=== PATIENT | female | born 1950 ===

== ENCOUNTER 2021-05-16 03:20 | Inpatient (IN) | payer MEDICARE ==
[2021-05-16] MEDS ORDERED: MELATONIN 5 MG TAB PO PRN (04:09)
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
[2021-05-16] MEDS ORDERED: LEVOTHYROXINE 125 MCG TAB PO SCH (10:00)
[2021-05-16] MEDS: DIVALPROEX ER 250 MG TAB PO SCH (10:28)
[2021-05-16] MEDS: clonazePAM 0.5 MG TAB PO SCH (10:28)
[2021-05-16 10:29] LABS: Basophils # (Auto) 0.1 K/mm3 (0.0-0.1); Eosinophils # (Auto) 0.2 K/mm3 (0.0-0.4); Eosinophils % (Auto) 4.6 % (0.0-4.3); Hematocrit 35.8 % (30.3-42.9); Hemoglobin 12.6 gm/dl (10.1-14.3); Lymphocytes # (Auto) 1.8 K/mm3 (1.2-5.4); Lymphocytes % (Auto) 43.4 % (13.4-35.0); Mean Corpuscular HGB Conc 35 % (30-34); Mean Corpuscular Volume 92 fl (79-97); Monocytes # (Auto) 0.4 K/mm3 (0.0-0.8); Platelet Count 366 K/mm3 (140-440); Red Blood Count 3.89 M/mm3 (3.65-5.03); Red Cell Distribution Width 13.2 % (13.2-15.2)
[2021-05-16 10:43] LABS: Alanine Aminotransferase 18 units/L (7-56); Blood Urea Nitrogen 9 mg/dL (7-17); Chol/HDL Ratio 2.22 %; HDL Cholesterol 104 mg/dL (40-59); Hemolysis Index 3; LDL Cholesterol,Direct 124 mg/dL (50-130)
[2021-05-16 10:51] LABS: BUN/Creatinine Ratio 15
[2021-05-16] MEDS ORDERED: POTASSIUM CHLORIDE ER 20 MEQ TAB PO NR (13:11)
[2021-05-16] MEDS: SULFAMETHOXAZOLE/TRIMETHOPRIM 800/160MG DS TAB PO SCH ×2 (13:16→22:04)
[2021-05-16] MEDS: LEVOTHYROXINE 125 MCG TAB PO SCH (13:16)
[2021-05-16] MEDS ORDERED: QUEtiapine 25 MG TAB PO SCH (22:00)
[2021-05-16] MEDS: traZODone 50 MG TAB PO SCH (22:04)
[2021-05-17] MEDS ORDERED: diphenhydrAMINE 25 MG CAP PO ONE (03:50)
[2021-05-17] MEDS: LEVOTHYROXINE 125 MCG TAB PO SCH (06:38)
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
[2021-05-17] MEDS ORDERED: QUEtiapine 25 MG TAB PO SCH (08:40)
[2021-05-17] MEDS ORDERED: ASENAPINE MALEATE 10 MG SL SCH (10:00)
[2021-05-17] MEDS: SULFAMETHOXAZOLE/TRIMETHOPRIM 800/160MG DS TAB PO SCH ×2 (10:57→21:25)
[2021-05-17] MEDS: DIVALPROEX ER 250 MG TAB PO SCH (10:57)
[2021-05-17] MEDS: clonazePAM 0.5 MG TAB PO SCH (10:57)
[2021-05-17] MEDS: traZODone 50 MG TAB PO SCH (21:25)
[2021-05-17] MEDS: QUEtiapine 200 MG TAB PO SCH (21:25)
[2021-05-18] MEDS: LEVOTHYROXINE 125 MCG TAB PO SCH (05:39)
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
[2021-05-18] MEDS: DIVALPROEX ER 250 MG TAB PO SCH (09:09)
[2021-05-18] MEDS: clonazePAM 0.5 MG TAB PO SCH (09:09)
[2021-05-18] MEDS: SULFAMETHOXAZOLE/TRIMETHOPRIM 800/160MG DS TAB PO SCH ×2 (09:09→22:26)
[2021-05-18] MEDS: QUEtiapine 200 MG TAB PO SCH ×2 (22:26→23:53)
[2021-05-18] MEDS: traZODone 50 MG TAB PO SCH (22:26)
[2021-05-19] MEDS: LEVOTHYROXINE 125 MCG TAB PO SCH (07:43)
[2021-05-19] MEDS: DIVALPROEX ER 250 MG TAB PO SCH (09:06)
[2021-05-19] MEDS: clonazePAM 0.5 MG TAB PO SCH (09:06)
[2021-05-19] MEDS: SULFAMETHOXAZOLE/TRIMETHOPRIM 800/160MG DS TAB PO SCH ×2 (09:06→21:13)
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
[2021-05-19] MEDS: traZODone 50 MG TAB PO SCH (21:12)
[2021-05-19] MEDS: QUEtiapine 200 MG TAB PO SCH (21:13)
[2021-05-20] MEDS: LEVOTHYROXINE 125 MCG TAB PO SCH (06:20)
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
[2021-05-20] MEDS: SULFAMETHOXAZOLE/TRIMETHOPRIM 800/160MG DS TAB PO SCH ×2 (09:11→21:00)
[2021-05-20] MEDS: clonazePAM 0.5 MG TAB PO SCH (09:11)
[2021-05-20] MEDS ORDERED: DIVALPROEX ER 250 MG TAB PO SCH (10:00)
[2021-05-20] MEDS: DIVALPROEX ER 500 MG TAB PO SCH ×3 (10:03→21:04)
[2021-05-20] MEDS: traZODone 50 MG TAB PO SCH (21:01)
[2021-05-21] MEDS: LEVOTHYROXINE 125 MCG TAB PO SCH (06:08)
--- NOTE | 2021-05-21 09:20 | Progress Note ---
Subjective Date of service: 05/21/21 Principal diagnosis: (1) Bipolar 1 disorder Subjective Comment: The patient was seen today. She is sitting off to herself. She says she's feeling okay. She denies SI/HI or hallucinations of any kind. REVIEW OF SYSTEMS Constitutional: Negative for weight loss ENT: Negative for stridor Respiratory: Negative for cough or hemoptysis All other systems reviewed and are negative MENTAL STATUS EXAMINATION General Appearance and Behavior: Age appropriate, good hygiene, wearing appropriate clothes, good eye contact, cooperative polite with questioning. Cooperation: Participating/engaged Psychomotor Behavior: unremarkable and within normal limits Mood: angry Affect and affective range: dysthymic Thought Process: illogical, Thought Content:obsessions Speech: Normal tone and pace Intellectual Functioning: Average Suicidal Ideation: Denies SI Homicidal Ideation: Denies HI Impulse Control: Unimpaired Insight and Judgment: Normal insight and judgment, Memory: Normal, Attention: divided Orientation: Alert, oriented, Assessment and Plan (1) Bipolar 1 disorder Current Visit: Yes Status: Acute Treatment Plan Patient admitted for inpatient psychiatric evaluation, medication adjustment and close monitoring The patient's behavior, mood, sleep and appetite will be closely monitored. Patient enrolled in individual and group therapeutic sessions and encouraged to attend. Patient provided with a safe and structured environment. Patient's physical health needs will be addressed by the Hospitalist. Hospitalist Consulted Labs including CBC, CMP, Lipid profile and Hemoglobin A1C levels ordered for baseline reference Valproic level 05/22 Social Assessment will be completed and the Valve Lapper will work with patient and family to ensure a suitable and safe disposition Medication adjustment will be made as clinically indicated D/c seranai at patient's request, states that it was discontinued by previous Dr due to it causing her to be depressed yesterday Increase Depakote ER 500mg po BID yesterday Increase Trazodone 75mg po qhs yesterday Usual Wellness Holiness/Preservation: - Start Trazodone 50 mg po QHS & 50 mg po QHS PRN between 10 PM & 2 AM for insomnia - Start Melatonin 5 mg po QHS to promote circadian rhythm - Start [place]-3 for brain health, reduce impulsivity, and as adjunctive treatment for mood disorder, continue upon discharge given overall benefits. - Start B1 prophylaxis with 200 mg po for 5 days The patient agreed on the treatment plan, understood the risk, benefit, alternative treatment, potential consequence of no treatment, and gave informed consent. I certify that the inpatient psychiatric services are required for treatment that could reasonably be expected to improve the patient's condition. Estimated days: 6 Post hospital care: primary care provider, psychiatric provider Medications and Allergies Allergies Allergy/AdvReac Type Severity Reaction Status Date / Time codeine Allergy Unknown Verified 05/16/21 03:58 shellfish derived Allergy Unknown Verified 05/16/21 03:58 Home Medications Medication Instructions Recorded Confirmed Last Taken Type Asenapine Maleate [Saphris] 10 mg SL BID 05/16/21 05/16/21 Unknown History Cyclobenzaprine [Flexeril 10 MG 10 mg PO TID PRN 05/16/21 05/16/21 Unknown History TAB] Divalproex ER [DepaKOTE ER] 250 mg PO DAILY 05/16/21 05/16/21 Unknown History Estradiol 0.1 mg TP UNK 05/16/21 05/16/21 Unknown History Levothyroxine [Synthroid] 125 mcg PO QAM 05/16/21 05/16/21 Unknown History Sulfamethoxazole/Trimethoprim 1 tab PO BID 05/16/21 05/16/21 Unknown History [Bactrim DS TAB] clonazePAM [KlonoPIN] 0.5 mg PO BID 05/16/21 05/16/21 Unknown History traZODone [Desyrel] 50 mg PO QHS 05/16/21 05/16/21 Unknown History Active Meds: Active Medications Clonazepam (Clonazepam 0.5 Mg Tab) 0.5 mg PO QAM ON LICENSE OF [facility] Last Admin: 05/20/21 09:11 Dose: 0.5 mg Documented by: Divalproex Sodium (Divalproex Er 500 Mg Tab) 500 mg PO BID ON LICENSE OF [facility] Last Admin: 05/20/21 21:04 Dose: Not Given Documented by: Levothyroxine Sodium (Levothyroxine 125 Mcg Tab) 125 mcg PO DAILY@0600 ON LICENSE OF [facility] Last Admin: 05/21/21 06:08 Dose: 125 mcg Documented by: Melatonin (Melatonin 5 Mg Tab) 5 mg PO QHS PRN PRN Reason: Sleep Miscellaneous Medication (Asenapine Maleate [Saphris]) 10 mg SL BID ON LICENSE OF [facility] Trazodone HCl (Trazodone 50 Mg Tab) 75 mg PO QHS ON LICENSE OF [facility] Last Admin: 05/20/21 21:01 Dose: 75 mg Documented by: Trimethoprim/Sulfamethoxazole (Sulfamethoxazole/Trimethoprim 800/160mg Ds Tab) 1 each PO Q12HR [facility]; Protocol Stop: 05/22/21 22:01 Last Admin: 05/20/21 21:00 Dose: 1 each Documented by: Results - Results Labs/Vitals: Laboratory Last Values WBC 4.1 K/mm3 (4.5-11.0) L 05/16/21 09:34 RBC 3.89 M/mm3 (3.65-5.03) 05/16/21 09:34 Hgb 12.6 gm/dl (10.1-14.3) 05/16/21 09:34 Hct 35.8 % (30.3-42.9) 05/16/21 09:34 MCV 92 fl (79-97) 05/16/21 09:34 MCH 33 pg (28-32) H 05/16/21 09:34 MCHC 35 % (30-34) H 05/16/21 09:34 RDW 13.2 % (13.2-15.2) 05/16/21 09:34 Plt Count 366 K/mm3 (140-440) 05/16/21 09:34 Lymph % (Auto) 43.4 % (13.4-35.0) H 05/16/21 09:34 [place] % (Auto) 10.0 % (0.0-7.3) H 05/16/21 09:34 Eos % (Auto) 4.6 % (0.0-4.3) H 05/16/21 09:34 Baso % (Auto) Dry Roller 05/16/21 09:34 Lymph # (Auto) 1.8 K/mm3 (1.2-5.4) 05/16/21 09:34 [place] # (Auto) 0.4 K/mm3 (0.0-0.8) 05/16/21 09:34 Eos # (Auto) 0.2 K/mm3 (0.0-0.4) 05/16/21 09:34 Baso # (Auto) 0.1 K/mm3 (0.0-0.1) 05/16/21 09:34 Seg Neutrophils % 39.0 % (40.0-70.0) L 05/16/21 09:34 Seg Neutrophils # 1.6 K/mm3 (1.8-7.7) L 05/16/21 09:34 Sodium 130 mmol/L (137-145) L 05/16/21 09:34 Potassium 3.5 mmol/L (3.6-5.0) L 05/16/21 09:34 Chloride 95.3 mmol/L (98-107) L 05/16/21 09:34 Carbon Dioxide 25 mmol/L (22-30) 05/16/21 09:34 Anion Gap 13 mmol/L 05/16/21 09:34 BUN 9 mg/dL (7-17) 05/16/21 09:34 Creatinine 0.6 mg/dL (0.6-1.2) 05/16/21 09:34 Estimated GFR > 60 ml/min 05/16/21 09:34 BUN/Creatinine Ratio 15 % 05/16/21 09:34 Glucose 124 mg/dL (65-100) H 05/16/21 09:34 POC Glucose 78 mg/dL (70-105) 05/16/21 04:57 Hemoglobin A1c 4.9 % (4-6) 05/16/21 09:34 Calcium 9.0 mg/dL (8.4-10.2) 05/16/21 09:34 Total Bilirubin 0.40 mg/dL (0.1-1.2) 05/16/21 09:34 AST 31 units/L (5-40) 05/16/21 09:34 ALT 18 units/L (7-56) 05/16/21 09:34 Alkaline Phosphatase 54 units/L (35-129) 05/16/21 09:34 Total Protein 6.3 g/dL (6.3-8.2) 05/16/21 09:34 Albumin 4.0 g/dL (3.9-5) 05/16/21 09:34 Albumin/Globulin Ratio 1.7 % 05/16/21 09:34 Triglycerides 33 mg/dL (2-149) 05/16/21 09:34 Cholesterol 231 mg/dL (50-199) H 05/16/21 09:34 LDL Cholesterol Direct 124 mg/dL (50-130) 05/16/21 09:34 HDL Cholesterol 104 mg/dL (40-59) H 05/16/21 09:34 Cholesterol/HDL Ratio 2.22 % 05/16/21 09:34 TSH 4.810 mlU/mL (0.270-4.200) H 05/16/21 09:34 Valproic Acid 32.1 ug/mL (50-100) L 05/18/21 08:23 Last Vital Signs Temp 98.5 F 05/21/21 08:50 Pulse 107 H 05/21/21 08:50 Resp 20 05/21/21 08:50 BP 129/81 05/21/21 08:50 Pulse Ox 100 05/20/21 19:34
[2021-05-21] MEDS: clonazePAM 0.5 MG TAB PO SCH (09:31)
[2021-05-21] MEDS: SULFAMETHOXAZOLE/TRIMETHOPRIM 800/160MG DS TAB PO SCH ×2 (09:33→21:04)
[2021-05-21] MEDS: VALPROIC ACID 250 MG/5 ML ORAL LIQD PO SCH ×2 (10:42→21:04)
[2021-05-21] MEDS: traZODone 50 MG TAB PO SCH (21:04)
[2021-05-22] MEDS: LEVOTHYROXINE 125 MCG TAB PO SCH (05:24)
[2021-05-22] MEDS: VALPROIC ACID 250 MG/5 ML ORAL LIQD PO SCH ×2 (09:39→21:23)
[2021-05-22] MEDS: SULFAMETHOXAZOLE/TRIMETHOPRIM 800/160MG DS TAB PO SCH ×2 (09:39→21:23)
[2021-05-22] MEDS: clonazePAM 0.5 MG TAB PO SCH (09:39)
--- NOTE | 2021-05-22 10:54 | Progress Note ---
Subjective Date of service: 05/22/21 Principal diagnosis: (1) Bipolar 1 disorder Subjective Comment: Per Nurse Note: pt rested well overnight, slept for 7hrs, no distress noted, will continue to monitor for safety. Patient seen eating breakfast in the common room. She reports doing well. She s tates mood as "fine , no complain." Patient reports eating and sleeping well. She is focused on discharge. She denies any current suicidal/homicidal ideation and denies AVHs. REVIEW OF SYSTEMS Constitutional: Negative for weight loss ENT: Negative for stridor Respiratory: Negative for cough or hemoptysis All other systems reviewed and are negative MENTAL STATUS EXAMINATION General Appearance and Behavior: Age appropriate, good hygiene, wearing appropriate clothes, good eye contact, cooperative polite with questioning. Cooperation: Participating/engaged Psychomotor Behavior: unremarkable and within normal limits Mood: "fine" Affect and affective range: dysthymic Thought Process: illogical, Thought Content:obsessions Speech: Normal tone and pace Intellectual Functioning: Average Suicidal Ideation: Denies SI Homicidal Ideation: Denies HI Impulse Control: Unimpaired Insight and Judgment: Normal insight and judgment, Memory: Normal, Attention: divided Orientation: Alert, oriented, Assessment and Plan (1) Bipolar 1 disorder Current Visit: Yes Status: Acute Treatment Plan Patient admitted for inpatient psychiatric evaluation, medication adjustment and close monitoring The patient's behavior, mood, sleep and appetite will be closely monitored. Patient enrolled in individual and group therapeutic sessions and encouraged to attend. Patient provided with a safe and structured environment. Patient's physical health needs will be addressed by the Hospitalist. Hospitalist Consulted Labs including CBC, CMP, Lipid profile and Hemoglobin A1C levels ordered for baseline reference Valproic level 05/22 Social Assessment will be completed and the Wireline Supervisor will work with patient and family to ensure a suitable and safe disposition Medication adjustment will be made as clinically indicated D/c seroqel at patient's request, states that it was discontinued by previous Dr due to it causing her to be depressed yesterday Increase Depakote ER 500mg po BID yesterday Increase Trazodone 75mg po qhs yesterday Usual Wellness Anabaptist/Preservation: - Start Trazodone 50 mg po QHS & 50 mg po QHS PRN between 10 PM & 2 AM for insomnia - Start Melatonin 5 mg po QHS to promote circadian rhythm - Start [place]-3 for brain health, reduce impulsivity, and as adjunctive treatment for mood disorder, continue upon discharge given overall benefits. - Start B1 prophylaxis with 200 mg po for 5 days The patient agreed on the treatment plan, understood the risk, benefit, alternative treatment, potential consequence of no treatment, and gave informed consent. I certify that the inpatient psychiatric services are required for treatment that could reasonably be expected to improve the patient's condition. Estimated days: 6 Post hospital care: primary care provider, psychiatric provider Medications and Allergies Allergies Allergy/AdvReac Type Severity Reaction Status Date / Time codeine Allergy Unknown Verified 05/16/21 03:58 shellfish derived Allergy Unknown Verified 05/16/21 03:58 Home Medications Medication Instructions Recorded Confirmed Last Taken Type Asenapine Maleate [Saphris] 10 mg SL BID 05/16/21 05/16/21 Unknown History Cyclobenzaprine [Flexeril 10 MG 10 mg PO TID PRN 05/16/21 05/16/21 Unknown History TAB] Divalproex ER [DepaKOTE ER] 250 mg PO DAILY 05/16/21 05/16/21 Unknown History Estradiol 0.1 mg TP UNK 05/16/21 05/16/21 Unknown History Levothyroxine [Synthroid] 125 mcg PO QAM 05/16/21 05/16/21 Unknown History Sulfamethoxazole/Trimethoprim 1 tab PO BID 05/16/21 05/16/21 Unknown History [Bactrim DS TAB] clonazePAM [KlonoPIN] 0.5 mg PO BID 05/16/21 05/16/21 Unknown History traZODone [Desyrel] 50 mg PO QHS 05/16/21 05/16/21 Unknown History Active Meds: Active Medications Clonazepam (Clonazepam 0.5 Mg Tab) 0.5 mg PO QAM [facility] Last Admin: 05/22/21 09:39 Dose: 0.5 mg Documented by: Levothyroxine Sodium (Levothyroxine 125 Mcg Tab) 125 mcg PO DAILY@0600 [facility] Last Admin: 05/22/21 05:24 Dose: 125 mcg Documented by: Melatonin (Melatonin 5 Mg Tab) 5 mg PO QHS PRN PRN Reason: Sleep Last Admin: 05/21/21 21:04 Dose: 5 mg Documented by: Trazodone HCl (Trazodone 50 Mg Tab) 75 mg PO QHS [facility] Last Admin: 05/21/21 21:04 Dose: 75 mg Documented by: Trimethoprim/Sulfamethoxazole (Sulfamethoxazole/Trimethoprim 800/160mg Ds Tab) 1 each PO Q12HR [facility]; Protocol Stop: 05/22/21 22:01 Last Admin: 05/22/21 09:39 Dose: 1 each Documented by: Valproic Acid (Valproic Acid 250 Mg/5 Ml Oral Liqd) 500 mg PO BID [facility] Last Admin: 05/22/21 09:39 Dose: 500 mg Documented by: Results - Results Labs/Vitals: Laboratory Last Values WBC 4.1 K/mm3 (4.5-11.0) L 05/16/21 09:34 RBC 3.89 M/mm3 (3.65-5.03) 05/16/21 09:34 Hgb 12.6 gm/dl (10.1-14.3) 05/16/21 09:34 Hct 35.8 % (30.3-42.9) 05/16/21 09:34 MCV 92 fl (79-97) 05/16/21 09:34 MCH 33 pg (28-32) H 05/16/21 09:34 MCHC 35 % (30-34) H 05/16/21 09:34 RDW 13.2 % (13.2-15.2) 05/16/21 09:34 Plt Count 366 K/mm3 (140-440) 05/16/21 09:34 Lymph % (Auto) 43.4 % (13.4-35.0) H 05/16/21 09:34 [place] % (Auto) 10.0 % (0.0-7.3) H 05/16/21 09:34 Eos % (Auto) 4.6 % (0.0-4.3) H 05/16/21 09:34 Baso % (Auto) Pet Sitter 05/16/21 09:34 Lymph # (Auto) 1.8 K/mm3 (1.2-5.4) 05/16/21 09:34 [place] # (Auto) 0.4 K/mm3 (0.0-0.8) 05/16/21 09:34 Eos # (Auto) 0.2 K/mm3 (0.0-0.4) 05/16/21 09:34 Baso # (Auto) 0.1 K/mm3 (0.0-0.1) 05/16/21 09:34 Seg Neutrophils % 39.0 % (40.0-70.0) L 05/16/21 09:34 Seg Neutrophils # 1.6 K/mm3 (1.8-7.7) L 05/16/21 09:34 Sodium 130 mmol/L (137-145) L 05/16/21 09:34 Potassium 3.5 mmol/L (3.6-5.0) L 05/16/21 09:34 Chloride 95.3 mmol/L (98-107) L 05/16/21 09:34 Carbon Dioxide 25 mmol/L (22-30) 05/16/21 09:34 Anion Gap 13 mmol/L 05/16/21 09:34 BUN 9 mg/dL (7-17) 05/16/21 09:34 Creatinine 0.6 mg/dL (0.6-1.2) 05/16/21 09:34 Estimated GFR > 60 ml/min 05/16/21 09:34 BUN/Creatinine Ratio 15 % 05/16/21 09:34 Glucose 124 mg/dL (65-100) H 05/16/21 09:34 POC Glucose 78 mg/dL (70-105) 05/16/21 04:57 Hemoglobin A1c 4.9 % (4-6) 05/16/21 09:34 Calcium 9.0 mg/dL (8.4-10.2) 05/16/21 09:34 Total Bilirubin 0.40 mg/dL (0.1-1.2) 05/16/21 09:34 AST 31 units/L (5-40) 05/16/21 09:34 ALT 18 units/L (7-56) 05/16/21 09:34 Alkaline Phosphatase 54 units/L (35-129) 05/16/21 09:34 Total Protein 6.3 g/dL (6.3-8.2) 05/16/21 09:34 Albumin 4.0 g/dL (3.9-5) 05/16/21 09:34 Albumin/Globulin Ratio 1.7 % 05/16/21 09:34 Triglycerides 33 mg/dL (2-149) 05/16/21 09:34 Cholesterol 231 mg/dL (50-199) H 05/16/21 09:34 LDL Cholesterol Direct 124 mg/dL (50-130) 05/16/21 09:34 HDL Cholesterol 104 mg/dL (40-59) H 05/16/21 09:34 Cholesterol/HDL Ratio 2.22 % 05/16/21 09:34 TSH 4.810 mlU/mL (0.270-4.200) H 05/16/21 09:34 Valproic Acid 32.1 ug/mL (50-100) L 05/18/21 08:23 Last Vital Signs Temp 98.7 F 05/22/21 07:59 Pulse 97 H 05/22/21 07:59 Resp 18 05/22/21 07:59 BP 104/67 05/22/21 07:59 Pulse Ox 99 05/22/21 07:59
--- NOTE | 2021-05-22 11:29 | Event Note ---
Date: 05/22/21 Spoke with the patient's spouse this morning about the patient's progress, and mad management. He says the patient became manic and delusional about two weeks ago, and starting making comments about wanting to hurt herself. He says then she became agitated and starting screaming at people who are not there. He says the patient also has not been sleeping.He says the the patient has been on several medications, and states that one of the meds made her "flat." I informed him that the patient states that was the seroquel and it had been discontinued. I also informed him that I had made some med adjustments. He verbalized understanding and agreement. Started Olanzapine 2.5mg po daily and increased Trazodone 100mg po qhs.
[2021-05-22] MEDS: traZODone 100 MG TAB PO SCH (21:24)
[2021-05-23] MEDS: LEVOTHYROXINE 125 MCG TAB PO SCH (05:46)
--- NOTE | 2021-05-23 09:11 | Event Note ---
Date: 05/23/21 Olanzapine discontinued, as the patient's told the nurse that is was discontinued by previous provider due to TD, per Nurse Richard
[2021-05-23] MEDS: clonazePAM 0.5 MG TAB PO SCH (09:31)
[2021-05-23] MEDS: VALPROIC ACID 250 MG/5 ML ORAL LIQD PO SCH ×2 (09:31→21:58)
--- NOTE | 2021-05-23 10:11 | Progress Note ---
Subjective Date of service: 05/23/21 Principal diagnosis: (1) Bipolar 1 disorder Subjective Comment: Per Nurse Note: Patient has been appropriate, calm, cooperative with staff and peers, she was med compliant. She denies si/hi and avh. Will continue to monitor. Patient was seen today i the activity room. patient states " I'm a little frustrated, I should not be here." Patient continues to reference as being abusive to their cat. She is hyperverbal and some manic. She reports slee ping and eating well. She denies any current suicidal/homicidal ideation and denies AVHs. REVIEW OF SYSTEMS Constitutional: Negative for weight loss ENT: Negative for stridor Respiratory: Negative for cough or hemoptysis All other systems reviewed and are negative MENTAL STATUS EXAMINATION General Appearance and Behavior: Age appropriate, good hygiene, wearing appropriate clothes, good eye contact, cooperative polite with questioning. Cooperation: Participating/engaged Psychomotor Behavior: unremarkable and within normal limits Mood: "frustrated" Affect and affective range: irritable Thought Process: illogical, Thought Content:obsessions Speech: Normal tone and pace Intellectual Functioning: Average Suicidal Ideation: Denies SI Homicidal Ideation: Denies HI Impulse Control: Unimpaired Insight and Judgment: Normal insight and judgment, Memory: Normal, Attention: divided Orientation: Alert, oriented, Assessment and Plan (1) Bipolar 1 disorder Current Visit: Yes Status: Acute Treatment Plan Patient admitted for inpatient psychiatric evaluation, medication adjustment and close monitoring The patient's behavior, mood, sleep and appetite will be closely monitored. Patient enrolled in individual and group therapeutic sessions and encouraged to attend. Patient provided with a safe and structured environment. Patient's physical health needs will be addressed by the Hospitalist. Hospitalist Consulted Labs including CBC, CMP, Lipid profile and Hemoglobin A1C levels ordered for baseline reference Valproic level 05/22 Social Assessment will be completed and the Metal Cut Off Saw Operator will work with patient and family to ensure a suitable and safe disposition Medication adjustment will be made as clinically indicated D/c seroqel at patient's request, states that it was discontinued by previous Dr due to it causing her to be depressed yesterday Increase Depakote ER 500mg po BID yesterday Increase Trazodone 75mg po qhs yesterday Usual Wellness Protestant/Preservation: - Continue Trazodone 50 mg po QHS & 50 mg po QHS PRN between 10 PM & 2 AM for insomnia - Continue Melatonin 5 mg po QHS to promote circadian rhythm - Continue [place]-3 for brain health, reduce impulsivity, and as adjunctive treatment for mood disorder, continue upon discharge given overall benefits. - Continue B1 prophylaxis with 200 mg po for 5 days The patient agreed on the treatment plan, understood the risk, benefit, alternative treatment, potential consequence of no treatment, and gave informed consent. I certify that the inpatient psychiatric services are required for treatment that could reasonably be expected to improve the patient's condition. Estimated days: 6 Post hospital care: primary care provider, psychiatric provider Medications and Allergies Allergies Allergy/AdvReac Type Severity Reaction Status Date / Time codeine Allergy Unknown Verified 05/16/21 03:58 shellfish derived Allergy Unknown Verified 05/16/21 03:58 Home Medications Medication Instructions Recorded Confirmed Last Taken Type Asenapine Maleate [Saphris] 10 mg SL BID 05/16/21 05/16/21 Unknown History Cyclobenzaprine [Flexeril 10 MG 10 mg PO TID PRN 05/16/21 05/16/21 Unknown History TAB] Divalproex ER [DepaKOTE ER] 250 mg PO DAILY 05/16/21 05/16/21 Unknown History Estradiol 0.1 mg TP UNK 05/16/21 05/16/21 Unknown History Levothyroxine [Synthroid] 125 mcg PO QAM 05/16/21 05/16/21 Unknown History Sulfamethoxazole/Trimethoprim 1 tab PO BID 05/16/21 05/16/21 Unknown History [Bactrim DS TAB] clonazePAM [KlonoPIN] 0.5 mg PO BID 05/16/21 05/16/21 Unknown History traZODone [Desyrel] 50 mg PO QHS 05/16/21 05/16/21 Unknown History Active Meds: Active Medications Clonazepam (Clonazepam 0.5 Mg Tab) 0.5 mg PO QAM [facility] Last Admin: 05/23/21 09:31 Dose: 0.5 mg Documented by: Levothyroxine Sodium (Levothyroxine 125 Mcg Tab) 125 mcg PO DAILY@0600 [facility] Last Admin: 05/23/21 05:46 Dose: 125 mcg Documented by: Melatonin (Melatonin 5 Mg Tab) 5 mg PO QHS PRN PRN Reason: Sleep Last Admin: 05/21/21 21:04 Dose: 5 mg Documented by: Trazodone HCl (Trazodone 100 Mg Tab) 100 mg PO QHS [facility] Last Admin: 05/22/21 21:24 Dose: 100 mg Documented by: Valproic Acid (Valproic Acid 250 Mg/5 Ml Oral Liqd) 500 mg PO BID [facility] Last Admin: 05/23/21 09:31 Dose: 500 mg Documented by: Results - Results Labs/Vitals: Laboratory Last Values WBC 4.1 K/mm3 (4.5-11.0) L 05/16/21 09:34 RBC 3.89 M/mm3 (3.65-5.03) 05/16/21 09:34 Hgb 12.6 gm/dl (10.1-14.3) 05/16/21 09:34 Hct 35.8 % (30.3-42.9) 05/16/21 09:34 MCV 92 fl (79-97) 05/16/21 09:34 MCH 33 pg (28-32) H 05/16/21 09:34 MCHC 35 % (30-34) H 05/16/21 09:34 RDW 13.2 % (13.2-15.2) 05/16/21 09:34 Plt Count 366 K/mm3 (140-440) 05/16/21 09:34 Lymph % (Auto) 43.4 % (13.4-35.0) H 05/16/21 09:34 [place] % (Auto) 10.0 % (0.0-7.3) H 05/16/21 09:34 Eos % (Auto) 4.6 % (0.0-4.3) H 05/16/21 09:34 Baso % (Auto) Proposal Analyst 05/16/21 09:34 Lymph # (Auto) 1.8 K/mm3 (1.2-5.4) 05/16/21 09:34 [place] # (Auto) 0.4 K/mm3 (0.0-0.8) 05/16/21 09:34 Eos # (Auto) 0.2 K/mm3 (0.0-0.4) 05/16/21 09:34 Baso # (Auto) 0.1 K/mm3 (0.0-0.1) 05/16/21 09:34 Seg Neutrophils % 39.0 % (40.0-70.0) L 05/16/21 09:34 Seg Neutrophils # 1.6 K/mm3 (1.8-7.7) L 05/16/21 09:34 Sodium 130 mmol/L (137-145) L 05/16/21 09:34 Potassium 3.5 mmol/L (3.6-5.0) L 05/16/21 09:34 Chloride 95.3 mmol/L (98-107) L 05/16/21 09:34 Carbon Dioxide 25 mmol/L (22-30) 05/16/21 09:34 Anion Gap 13 mmol/L 05/16/21 09:34 BUN 9 mg/dL (7-17) 05/16/21 09:34 Creatinine 0.6 mg/dL (0.6-1.2) 05/16/21 09:34 Estimated GFR > 60 ml/min 05/16/21 09:34 BUN/Creatinine Ratio 15 % 05/16/21 09:34 Glucose 124 mg/dL (65-100) H 05/16/21 09:34 POC Glucose 78 mg/dL (70-105) 05/16/21 04:57 Hemoglobin A1c 4.9 % (4-6) 05/16/21 09:34 Calcium 9.0 mg/dL (8.4-10.2) 05/16/21 09:34 Total Bilirubin 0.40 mg/dL (0.1-1.2) 05/16/21 09:34 AST 31 units/L (5-40) 05/16/21 09:34 ALT 18 units/L (7-56) 05/16/21 09:34 Alkaline Phosphatase 54 units/L (35-129) 05/16/21 09:34 Total Protein 6.3 g/dL (6.3-8.2) 05/16/21 09:34 Albumin 4.0 g/dL (3.9-5) 05/16/21 09:34 Albumin/Globulin Ratio 1.7 % 05/16/21 09:34 Triglycerides 33 mg/dL (2-149) 05/16/21 09:34 Cholesterol 231 mg/dL (50-199) H 05/16/21 09:34 LDL Cholesterol Direct 124 mg/dL (50-130) 05/16/21 09:34 HDL Cholesterol 104 mg/dL (40-59) H 05/16/21 09:34 Cholesterol/HDL Ratio 2.22 % 05/16/21 09:34 TSH 4.810 mlU/mL (0.270-4.200) H 05/16/21 09:34 Valproic Acid 32.1 ug/mL (50-100) L 05/18/21 08:23 Last Vital Signs Temp 98.5 F 05/23/21 06:39 Pulse 83 05/23/21 06:39 Resp 16 05/23/21 06:39 BP 112/60 05/23/21 06:39 Pulse Ox 99 05/23/21 06:39
--- NOTE | 2021-05-23 20:06 | Progress Note ---
Assessment and Plan - Patient Problems (1) Vascular dementia with behavioral disturbance Status: Acute Plan to address problem: Verbal prompting, verbal redirection, benzodiazepine therapy as clinically indicated, supportive care (2) Cerebral atherosclerosis Status: Acute Plan to address problem: Risk factor reduction therapy, antiplatelet therapy as clinically indicated. (3) Bipolar 1 disorder Status: Acute Plan to address problem: Supportive care, continue medical management as per primary team. History Interval history: 71 YO Female with PTSD, schizophrenia, Bipolar Disorder, Vascular Dementia with Behavioral Disturbance, Cerebral Atherosclerosis admitted to [facility] for psychiatric stabilization. Patient seen and evaluated in the recreation room. No reported nursing events. Patient denies pain. Patient appears Hospitalist Physical - Constitutional Vitals: Temp Pulse Resp BP Pulse Ox 98.5 F 83 16 112/60 99 05/23/21 06:39 05/23/21 06:39 05/23/21 06:39 05/23/21 06:39 05/23/21 06:39 General appearance: Present: no acute distress - EENT Eyes: Present: PERRL ENT: hearing intact - Neck Neck: Present: supple - Respiratory Respiratory: bilateral: CTA - Cardiovascular Rhythm: regular Heart Sounds: Present: S1 & S2 - Extremities Extremities: no ischemia Peripheral Pulses: within normal limits - Abdominal General gastrointestinal: soft, non-tender, non-distended - Integumentary Integumentary: Present: clear, erythema - Psychiatric Psychiatric: cooperative - Neurologic Neurologic: CNII-XII intact Results - Labs CBC & Chem 7: 05/16/21 09:34 05/16/21 09:34 Labs: Laboratory Last Values WBC 4.1 K/mm3 (4.5-11.0) L 05/16/21 09:34 RBC 3.89 M/mm3 (3.65-5.03) 05/16/21 09:34 Hgb 12.6 gm/dl (10.1-14.3) 05/16/21 09:34 Hct 35.8 % (30.3-42.9) 05/16/21 09:34 MCV 92 fl (79-97) 05/16/21 09:34 MCH 33 pg (28-32) H 05/16/21 09:34 MCHC 35 % (30-34) H 05/16/21 09:34 RDW 13.2 % (13.2-15.2) 05/16/21 09:34 Plt Count 366 K/mm3 (140-440) 05/16/21 09:34 Lymph % (Auto) 43.4 % (13.4-35.0) H 05/16/21 09:34 [place] % (Auto) 10.0 % (0.0-7.3) H 05/16/21 09:34 Eos % (Auto) 4.6 % (0.0-4.3) H 05/16/21 09:34 Baso % (Auto) Seaming Machine Operator 05/16/21 09:34 Lymph # (Auto) 1.8 K/mm3 (1.2-5.4) 05/16/21 09:34 [place] # (Auto) 0.4 K/mm3 (0.0-0.8) 05/16/21 09:34 Eos # (Auto) 0.2 K/mm3 (0.0-0.4) 05/16/21 09:34 Baso # (Auto) 0.1 K/mm3 (0.0-0.1) 05/16/21 09:34 Seg Neutrophils % 39.0 % (40.0-70.0) L 05/16/21 09:34 Seg Neutrophils # 1.6 K/mm3 (1.8-7.7) L 05/16/21 09:34 Sodium 130 mmol/L (137-145) L 05/16/21 09:34 Potassium 3.5 mmol/L (3.6-5.0) L 05/16/21 09:34 Chloride 95.3 mmol/L (98-107) L 05/16/21 09:34 Carbon Dioxide 25 mmol/L (22-30) 05/16/21 09:34 Anion Gap 13 mmol/L 05/16/21 09:34 BUN 9 mg/dL (7-17) 05/16/21 09:34 Creatinine 0.6 mg/dL (0.6-1.2) 05/16/21 09:34 Estimated GFR > 60 ml/min 05/16/21 09:34 BUN/Creatinine Ratio 15 % 05/16/21 09:34 Glucose 124 mg/dL (65-100) H 05/16/21 09:34 POC Glucose 78 mg/dL (70-105) 05/16/21 04:57 Hemoglobin A1c 4.9 % (4-6) 05/16/21 09:34 Calcium 9.0 mg/dL (8.4-10.2) 05/16/21 09:34 Total Bilirubin 0.40 mg/dL (0.1-1.2) 05/16/21 09:34 AST 31 units/L (5-40) 05/16/21 09:34 ALT 18 units/L (7-56) 05/16/21 09:34 Alkaline Phosphatase 54 units/L (35-129) 05/16/21 09:34 Total Protein 6.3 g/dL (6.3-8.2) 05/16/21 09:34 Albumin 4.0 g/dL (3.9-5) 05/16/21 09:34 Albumin/Globulin Ratio 1.7 % 05/16/21 09:34 Triglycerides 33 mg/dL (2-149) 05/16/21 09:34 Cholesterol 231 mg/dL (50-199) H 05/16/21 09:34 LDL Cholesterol Direct 124 mg/dL (50-130) 05/16/21 09:34 HDL Cholesterol 104 mg/dL (40-59) H 05/16/21 09:34 Cholesterol/HDL Ratio 2.22 % 05/16/21 09:34 TSH 4.810 mlU/mL (0.270-4.200) H 05/16/21 09:34 Valproic Acid 32.1 ug/mL (50-100) L 05/18/21 08:23 Yoon/IV: Voiding Method Toilet Active Medications - Current Medications Current Medications: Generic Name Dose Route Start Last Admin Trade Name Freq PRN Reason Stop Dose Admin Clonazepam 0.5 mg 05/16/21 10:00 05/23/21 09:31 Clonazepam 0.5 Mg Tab PO 0.5 mg QAM LOLA Administration Levothyroxine Sodium 125 mcg 05/16/21 10:00 05/23/21 05:46 Levothyroxine 125 Mcg Tab PO 125 mcg DAILY@0600 LOLA Administration Melatonin 5 mg 05/16/21 04:09 05/21/21 21:04 Melatonin 5 Mg Tab PO 5 mg QHS PRN Administration Sleep Trazodone HCl 100 mg 05/22/21 22:00 05/22/21 21:24 Trazodone 100 Mg Tab PO 100 mg QHS LOLA Administration Valproic Acid 500 mg 05/21/21 10:00 05/23/21 09:31 Valproic Acid 250 Mg/5 Ml Oral Liqd PO 500 mg BID LOLA Administration Nutrition/Malnutrition Assess - Dietary Evaluation Nutrition/Malnutrition Findings: Nutrition Notes Start: 05/22/21 13:42 Freq: Status: Active Protocol: Document 05/22/21 13:42 TOO (Rec: 05/22/21 13:44 TOO [id number]) Nutrition Notes Need for Assessment generated from: LOS Initial or Follow up Brief Note Current Diet Regular Height 5 ft 7 in Weight 70.307 kg [place] Body Weight (kg) 61.36 BMI 24.3 Weight Status Appropriate Subjective/Other Information Pt screened for LOS. She has consumed 92% of meals since admission. Percent of energy/protein needs met: 100% energy and pro Current % PO Good (75-100%) Minimum of two criteria No Is patient on ventilator? No Is Patient Ambulatory and/or Out of Bed Yes REE-([facility]-ambulatory/OOB) [ [id number] [id number]] Calculation Used for Recommendations [facility] Additional Notes Pro needs 1-1.2g/k-84g/ day Fluid needs 1ml/kcal Nutrition Intervention Revisit per MD consult or patient Sign Off request:
[2021-05-23] MEDS: traZODone 100 MG TAB PO SCH (21:58)
[2021-05-24] MEDS: LEVOTHYROXINE 125 MCG TAB PO SCH (05:53)
[2021-05-24 10:13] VITALS: BP 107/63
[2021-05-24] MEDS: VALPROIC ACID 250 MG/5 ML ORAL LIQD PO SCH (10:13)
[2021-05-24] MEDS: clonazePAM 0.5 MG TAB PO SCH (10:13)
--- NOTE | 2021-05-24 10:30 | Discharge Summary ---
Providers - Providers Date of Admission: 05/16/21 04:48 Date of discharge: 05/24/21 Attending physician: NAT ARREDONDO MD 05/16/21 04:00 Consult to Physician [CONS] Routine Comment: Manage existing conditions Consulting Provider: SERGE GARCIA Physician Instructions: Consultation Reason For Exam: H&P Primary care physician: VISUAL MERCHANDISING DIRECTOR Hospitalization Reason for admission: psychosis Admitting Diagnosis: F31.9 - BIPOLAR DISORDER, UNSPECIFIED Hospital course: The patient was provided inpatient psychiatric treatment with safe and supportive care, medication adjustment, adverse effect monitoring, medical evaluations, medical treatments, assessment and psycho-education. The patient's mood, cognition, behavior, moral support are improved and stabilized. St the time of discharge, the patient had no endangering behavior and no debilitating adverse effects. The patient agreed on potential consequences of no treatment and gave informed consent. Disposition: - TO HOME OR SELFCARE Time spent for discharge: 38 Allergies/Adverse Reactions: Allergies codeine Allergy (Verified 05/16/21 03:58) Unknown shellfish derived Allergy (Verified 05/16/21 03:58) Unknown Vital Signs: Last Vital Signs Temp 97.9 F 05/24/21 07:41 Pulse 71 05/24/21 07:42 Resp 18 05/24/21 07:41 BP 107/63 05/24/21 07:41 Pulse Ox 99 05/24/21 07:42 Last Lab: Laboratory Last Values WBC 4.1 K/mm3 (4.5-11.0) L 05/16/21 09:34 RBC 3.89 M/mm3 (3.65-5.03) 05/16/21 09:34 Hgb 12.6 gm/dl (10.1-14.3) 05/16/21 09:34 Hct 35.8 % (30.3-42.9) 05/16/21 09:34 MCV 92 fl (79-97) 05/16/21 09:34 MCH 33 pg (28-32) H 05/16/21 09:34 MCHC 35 % (30-34) H 05/16/21 09:34 RDW 13.2 % (13.2-15.2) 05/16/21 09:34 Plt Count 366 K/mm3 (140-440) 05/16/21 09:34 Lymph % (Auto) 43.4 % (13.4-35.0) H 05/16/21 09:34 [place] % (Auto) 10.0 % (0.0-7.3) H 05/16/21 09:34 Eos % (Auto) 4.6 % (0.0-4.3) H 05/16/21 09:34 Baso % (Auto) Major Appliance Assembly Supervisor 05/16/21 09:34 Lymph # (Auto) 1.8 K/mm3 (1.2-5.4) 05/16/21 09:34 [place] # (Auto) 0.4 K/mm3 (0.0-0.8) 05/16/21 09:34 Eos # (Auto) 0.2 K/mm3 (0.0-0.4) 05/16/21 09:34 Baso # (Auto) 0.1 K/mm3 (0.0-0.1) 05/16/21 09:34 Seg Neutrophils % 39.0 % (40.0-70.0) L 05/16/21 09:34 Seg Neutrophils # 1.6 K/mm3 (1.8-7.7) L 05/16/21 09:34 Sodium 130 mmol/L (137-145) L 05/16/21 09:34 Potassium 3.5 mmol/L (3.6-5.0) L 05/16/21 09:34 Chloride 95.3 mmol/L (98-107) L 05/16/21 09:34 Carbon Dioxide 25 mmol/L (22-30) 05/16/21 09:34 Anion Gap 13 mmol/L 05/16/21 09:34 BUN 9 mg/dL (7-17) 05/16/21 09:34 Creatinine 0.6 mg/dL (0.6-1.2) 05/16/21 09:34 Estimated GFR > 60 ml/min 05/16/21 09:34 BUN/Creatinine Ratio 15 % 05/16/21 09:34 Glucose 124 mg/dL (65-100) H 05/16/21 09:34 POC Glucose 78 mg/dL (70-105) 05/16/21 04:57 Hemoglobin A1c 4.9 % (4-6) 05/16/21 09:34 Calcium 9.0 mg/dL (8.4-10.2) 05/16/21 09:34 Total Bilirubin 0.40 mg/dL (0.1-1.2) 05/16/21 09:34 AST 31 units/L (5-40) 05/16/21 09:34 ALT 18 units/L (7-56) 05/16/21 09:34 Alkaline Phosphatase 54 units/L (35-129) 05/16/21 09:34 Total Protein 6.3 g/dL (6.3-8.2) 05/16/21 09:34 Albumin 4.0 g/dL (3.9-5) 05/16/21 09:34 Albumin/Globulin Ratio 1.7 % 05/16/21 09:34 Triglycerides 33 mg/dL (2-149) 05/16/21 09:34 Cholesterol 231 mg/dL (50-199) H 05/16/21 09:34 LDL Cholesterol Direct 124 mg/dL (50-130) 05/16/21 09:34 HDL Cholesterol 104 mg/dL (40-59) H 05/16/21 09:34 Cholesterol/HDL Ratio 2.22 % 05/16/21 09:34 TSH 4.810 mlU/mL (0.270-4.200) H 05/16/21 09:34 Valproic Acid 32.1 ug/mL (50-100) L 05/18/21 08:23 Core Measure Documentation - Palliative Care Palliative Care/ Comfort Measures: Not Applicable - Core Measures Any of the following diagnoses?: none Exam - Constitutional Vitals: Temp Pulse Resp BP Pulse Ox 97.9 F 71 18 107/63 99 05/24/21 07:41 05/24/21 07:42 05/24/21 07:41 05/24/21 07:41 05/24/21 07:42 General appearance: Present: no acute distress - EENT Eyes: Present: PERRL, EOM intact ENT: hearing intact, clear oral mucosa - Neck Neck: Present: supple, normal ROM - Respiratory Respiratory effort: normal Plan Activity: advance as tolerated Weight Bearing Status: Weight Bear as Tolerated Care Plan Goals: maintain good and stable mental health Plan of Treatment: The patient should be compliant with medications, not to use drugs, and not to drink alcohol. The patient understands that if suicidal ideas, homicidal ideas or any endangering feeling arise, the patient should seek assistance including, but not limited to crisis hotline, and emergency room. Assessment: Bipolar Follow up with: PRIMARY CARE, [Primary Care Provider] - 7 Days Prescriptions: traZODone [Desyrel] 100 mg PO QHS #30 tablet Melatonin [Melatonin 5MG TAB] 5 mg PO QHS PRN #30 tablet PRN Reason: Sleep VALPROIC ACID Liq [DepaKENE Liq] 500 mg PO BID #1 bottle
== END 2021-05-24 14:55 | disposition home or self-care (01) | DRG 885 ==
LOC: UNDOADMIN 03:20 → 3A 03:20 → 5A 04:48
PROVIDERS: ADMIT Psychiatry & Neurology Psychiatry; ATTEND Psychiatry & Neurology Psychiatry
DX: F31.9 Bipolar disorder, unspecified (principal); N39.0 Urinary tract infection, site not specified; F20.9 Schizophrenia, unspecified; F43.10 Post-traumatic stress disorder, unspecified; X58.XXXA Exposure to other specified factors, initial encounter; F12.90 Cannabis use, unspecified, uncomplicated; Z88.5 Allergy status to narcotic agent; Z91.013 Allergy to seafood
CPT/HCPCS: 36415; 80053; 80061; 80164; 82962; 83036; 84443; 85025; G0378